=== PATIENT | female | born 1945 | race Asian ===

== ENCOUNTER 2020-09-29 19:50 | Emergency (ER) | payer MEDICARE, OTHER ==
--- NOTE | 2020-09-29 19:56 | ED Physician Documentation ---
PD HPI UPPER EXT INJURY - Stated complaint Stated Complaint: LT HAND FINGER CUT OFF - History obtained from History obtained from: Patient - History of Present Illness Location: Left Type of injury: Other (see narrative below) Where injury occurred: Home Timing - onset: Enter time (19:15) Timing - details: Abrupt onset Pain level now: 6 Associated symptoms: Weakness, Numbness Contributing factors: No: Anticoagulated Recently seen: Not recently seen - Additonal information Additional information: at approximately 7:15 PM tonight, patient was walking her dog when it suddenly tried to run away. The dog leash was coiled around patient's left third finger and the pull from the tightened leash resulted in a near-complete amputation of her left third finger. She is right hand dominant. 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 The entire articular surface of the distal aspect of left 3rd proximal phalanx is visible. The remainder of the digit distal to the PIP joint is only attached by a pedicle of skin and tissue at lateral aspect of the PIP joint area. ). No: Sensory intact (no LTS of distal left third finger. the distal aspect of left third finger is midly blanched but not pale nor cyanotic) Results - Vitals Vitals: Vital Signs - 24 hr 09/29/20 09/29/20 09/29/20 19:59 20:10 20:35 Temperature 36.2 C L Heart Rate 83 81 Respiratory 17 16 15 Rate Blood Pressure 148/92 H 141/81 H O2 Saturation 99 98 09/29/20 09/29/20 09/29/20 21:01 22:05 22:54 Temperature Heart Rate 86 77 90 Respiratory 16 16 16 Rate Blood Pressure 153/91 H 140/86 H 150/83 H O2 Saturation 100 98 98 Oxygen O2 Source Room air - Labs Labs: Laboratory Tests 09/29/20 09/29/20 09/29/20 20:00 20:00 22:51 WBC 6.8 RBC 4.69 Hgb 14.1 Hct 41.5 MCV 88.5 MCH 30.1 MCHC 34.0 RDW 12.3 Plt Count 217 MPV 10.6 Neut # (Auto) 3.8 Lymph # (Auto) 2.1 [place] # (Auto) 0.6 Eos # (Auto) 0.2 Baso # (Auto) 0.0 Absolute Nucleated RBC 0.00 Nucleated RBC % 0.0 Sodium 137 Potassium 3.9 Chloride 96 L Carbon Dioxide 30 Anion Gap 11.0 BUN 23 H Creatinine 0.8 Estimated GFR (MDRD) 70 L Glucose 107 H Calcium 9.4 Total Bilirubin 0.7 AST 31 ALT 24 Alkaline Phosphatase 47 Total Protein 7.2 Albumin 4.8 Globulin 2.4 Albumin/Globulin Ratio 2.0 Lipase 49 Nasal Adenovirus (PCR) NOT DETECTED Nasal B. parapertussis DNA (PCR) NOT DETECTED Nasal Coronavir 229E PCR NOT DETECTED Nasal Coronavir HKU1 PCR NOT DETECTED Nasal Coronavir NL63 PCR NOT DETECTED Nasal Coronavir OC43 PCR NOT DETECTED Nasal Enterovir/Rhinovir PCR NOT DETECTED Nasal Influenza B PCR NOT DETECTED Nasal Influenza A PCR NOT DETECTED Nasal Parainfluen 1 PCR NOT DETECTED Nasal Parainfluen 2 PCR NOT DETECTED Nasal Parainfluen 3 PCR NOT DETECTED Nasal Parainfluen 4 PCR NOT DETECTED Nasal RSV (PCR) NOT DETECTED Nasal B.pertussis DNA PCR NOT DETECTED Nasal C.pneumoniae (PCR) NOT DETECTED Amilcar Human Metapneumo PCR NOT DETECTED Nasal M.pneumoniae (PCR) NOT DETECTED Nasal SARS-CoV-2 (PCR) NOT DETECTED - Rads (name of study) left hand xray Radiology: Prelim report reviewed, See rad report PD MEDICAL DECISION MAKING - ED course Complexity details: reviewed results, re-evaluated patient, considered differential, d/w patient ED course: 20:00 D/W Dr. Daily (pianos and organs salesperson orthopedics), he recommends sending patient to facility with hand surgeon pianos and organs salesperson. 20:03 Page put out to [facility] 20:30 Received call from [facility] transfer center, discussed the case with transfer center coordinator. She will contact hand surgeon and call back. 21:46 Continuing to await call back from [facility] 22:[address] Mesa, plastic surgeon pianos and organs salesperson at [facility]. Based on my description, he opines that patient needs revision amputation, which can be performed in the ED by appropriate specialist such as orthopedic surgeon. Dr. Daily was repaged but no answer; message is left to call ED back. 22:15 Dr. Daily has not answered after [address] Mesa is repaged but he is busy with another case. While waiting to hear from Dr. Mesa, NATIONAL SALES DIRECTOR contacted [facility] and I was given the direct number for Dr. Quinones, pianos and organs salesperson ortho at [facility]. I contacted Dr. Quinones and he recommends patient receive evaluation in person by specialist that can perform reimplantation, as he is not certain revised amputation is necessary. I continue to await to hear from Dr. Mesa 22:[address] [place] [address] Mesa, accept transfer to [facility] ED Prior to transfer, I assisted ED RN and technical aid with placement of a dressing and I now note that there does not appear to be any skin bridges traversing any aspect of the wound, but there is resistance to straightening the finger, indicating some intact tendinous structures. The distal aspect of the finger continues to have only mild pale color; it is not cold nor cyanotic. Departure - Departure Disposition: 02 Transfer Acute Care Hosp Discharge Date/Time: 09/29/20 23:20
[2020-09-29] MEDS ORDERED: MORPHINE 2 MG/ML CARPUJECT IVP STA ×2 (20:17→23:07)
[2020-09-29] MEDS ORDERED: VANCOMYCIN INJ 1 GM in SODIUM CHLORIDE 0.9% 500 ML IV STA (20:20)
[2020-09-29 20:22] LABS: BASOPHILS % (AUTO) 0.6 %; EOSINOPHILS # (AUTO) 0.2 10^3/uL (0.0-0.7); EOSINOPHILS % (AUTO) 2.4 %; HCT - HEMATOCRIT 41.5 % (37.0-47.0); HGB - HEMOGLOBIN 14.1 g/dL (12.0-16.0); LYMPHOCYTES # (AUTO) 2.1 10^3/uL (1.5-3.5); LYMPHOCYTES % (AUTO) 31.3 %; MEAN CORPUSCULAR HEMOGLOBIN 30.1 pg (27.0-31.0); MEAN CORPUSCULAR VOLUME 88.5 fL (81.0-99.0); MEAN PLATELET VOLUME 10.6 fL (7.9-10.8); MONOCYTES # (AUTO) 0.6 10^3/uL (0.0-1.0); MONOCYTES % (AUTO) 8.8 %; NEUTROPHILS # (AUTO) 3.8 10^3/uL (1.5-6.6); NEUTROPHILS % (AUTO) 56.6 %; PLT - PLATELET COUNT 217 10^3/uL (130-450); RED BLOOD COUNT 4.69 10^6/uL (4.20-5.40); RED CELL DISTRIBUTION WIDTH 12.3 % (12.0-15.0); WHITE BLOOD COUNT 6.8 x10^3/uL (4.8-10.8)
[2020-09-29 20:31] LABS: ALBUMIN 4.8 g/dL (3.2-5.5); BILIRUBIN,TOTAL 0.7 mg/dL (0.2-1.0); CALCIUM 9.4 mg/dL (8.5-10.3); CREATININE 0.8 mg/dL (0.4-1.0); POTASSIUM 3.9 mmol/L (3.5-5.0); TOTAL PROTEIN 7.2 g/dL (6.7-8.2)
[2020-09-29] MEDS ORDERED: VANCOMYCIN 1 GM VIAL ONE (20:49)
--- NOTE | 2020-09-29 21:02 | XRAY Report ---
PROCEDURE: Hand 3 View LT INDICATIONS: near-amputation left third finger TECHNIQUE: 3 views of the hand(s) acquired. COMPARISON: None. FINDINGS: Bones: There is near amputation dislocation at the third proximal and interphalangeal joint. Arthrode sis of the first metatarsophalangeal joint. Prior surgical resection of the trapezium. No suspicious bony lesions. Soft tissues: Tissue amputation finger. IMPRESSION: 1. Near amputation of the third finger at the proximal interphalangeal joint. 2. There is a sliver of soft tissue connecting the finger between the proximal phalanx and the medial /distal phalanges. Reviewed by: Eileen Samuel MD on 09/29/2020 9:01 PM PDT Approved by: Eileen Samuel MD on 09/29/2020 9:01 PM PDT Station ID: [id number]
[2020-09-29 22:54] VITALS: BP 150/83
[2020-09-29 23:44] LABS: B. PARAPERTUSSIS- RESP PCR PAN NOT DETECTED; B. PERTUSSIS- RESP PCR PANEL NOT DETECTED; C. PNEUMONIAE- RESP PCR PANEL NOT DETECTED; CORONAVIRUS 229E-RESP PCR NOT DETECTED; CORONAVIRUS HKU1-RESP PCR NOT DETECTED; CORONAVIRUS NL63-RESP PCR NOT DETECTED; CORONAVIRUS OC43-RESP PCR NOT DETECTED; HUMAN METAPNEUMOVIRUS NOT DETECTED; INFLUENZA A- RESP PCR PANEL NOT DETECTED; INFLUENZA B - RESP PCR PANEL NOT DETECTED; M. PNEUMONIAE- RESP PCR PANEL NOT DETECTED; PARAINFLUENZA VIRUS 1 NOT DETECTED; PARAINFLUENZA VIRUS 2 NOT DETECTED; PARAINFLUENZA VIRUS 3 NOT DETECTED; PARAINFLUENZA VIRUS 4 NOT DETECTED; RHINOVIRUS/ENTEROVIRUS NOT DETECTED; RSV- RESP PCR PANEL NOT DETECTED; SARS-CoV-2 -RESP PCR PANEL NOT DETECTED
== END 2020-09-29 23:20 | disposition short-term general hospital (02) ==
LOC: ED 19:50
DX: S68.623A Partial traumatic transphalangeal amputation of left middle finger, initial encounter (principal); W49.09XA Other specified item causing external constriction, initial encounter; Y93.K1 Activity, walking an animal; Y92.009 Unspecified place in unspecified non-institutional (private) residence as the place of occurrence of the external cause; Z20.822 Contact with and (suspected) exposure to COVID-19
CPT/HCPCS: 36415; 73130; 80053; 83690; 85025; 87631; 96365; 96366; 96375; 96376; 99281; 99284; J3370; 0202U

== ENCOUNTER 2020-09-29 23:15 | Outpatient (CLI) | payer MEDICARE, OTHER | END 2020-09-29 23:16 | disposition short-term general hospital (02) | LOC: EMS 23:15 | PROVIDERS: ATTEND Emergency Medicine | DX: S68.123A Partial traumatic metacarpophalangeal amputation of left middle finger, initial encounter (principal); X50.1XXA Overexertion from prolonged static or awkward postures, initial encounter; Y93.K9 Activity, other involving animal care | CPT/HCPCS: A0425; A0426 ==

== ENCOUNTER 2022-04-02 11:02 | Emergency (ER) | payer MEDICARE, OTHER ==
[2022-04-02 12:05] LABS: BASOPHILS % (AUTO) 0.6 %; EOSINOPHILS # (AUTO) 0.1 10^3/uL (0.0-0.7); EOSINOPHILS % (AUTO) 1.4 %; HCT - HEMATOCRIT 41.4 % (37.0-47.0); HGB - HEMOGLOBIN 14.1 g/dL (12.0-16.0); LYMPHOCYTES # (AUTO) 1.8 10^3/uL (1.5-3.5); LYMPHOCYTES % (AUTO) 26.2 %; MEAN CORPUSCULAR HEMOGLOBIN 30.7 pg (27.0-31.0); MEAN CORPUSCULAR HGB CONC 34.1 g/dL (32.0-36.0); MEAN CORPUSCULAR VOLUME 90.2 fL (81.0-99.0); MEAN PLATELET VOLUME 10.2 fL (7.9-10.8); MONOCYTES # (AUTO) 0.6 10^3/uL (0.0-1.0); MONOCYTES % (AUTO) 8.2 %; NEUTROPHILS # (AUTO) 4.4 10^3/uL (1.5-6.6); NEUTROPHILS % (AUTO) 63.3 %; PLT - PLATELET COUNT 230 10^3/uL (130-450); RED BLOOD COUNT 4.59 10^6/uL (4.20-5.40); RED CELL DISTRIBUTION WIDTH 12.1 % (12.0-15.0)
[2022-04-02 12:14] LABS: CALCIUM 9.5 mg/dL (8.5-10.3); CREATININE 0.7 mg/dL (0.4-1.0); POTASSIUM 4.2 mmol/L (3.5-5.0)
[2022-04-02 12:18] LABS: BILIRUBIN,URINE NEGATIVE (NEGATIVE); CLARITY,URINE CLEAR (CLEAR); GLUCOSE, URINE (UA) NEGATIVE (NEGATIVE); KETONES,URINE (UA) NEGATIVE (NEGATIVE); LEUKOCYTE ESTERASE, URINE NEGATIVE (NEGATIVE); NITRITE,URINE NEGATIVE (NEGATIVE); OCCULT BLOOD,URINE NEGATIVE (NEGATIVE); PROTEIN,URINE NEGATIVE (NEGATIVE); UROBILINOGEN,URINE 0.2 (NORMAL) E.U./dL (NORMAL)
--- NOTE | 2022-04-02 13:54 | CT Report ---
PROCEDURE: CERVICAL SPINE WO INDICATIONS: fall, altered TECHNIQUE: Noncontrast 3 mm thick sections acquired from the skull base to the T4 level. Sagittal and coronal r eformats were then constructed. For radiation dose reduction, the following was used: automated exp osure control, adjustment of mA and/or kV according to patient size. COMPARISON: None. FINDINGS: Image quality: Excellent. Bones: No fractures or dislocations. Visualized superior ribs are intact. Cervical spondylitic fred nge is present. There is disc height loss and uncovertebral joint osteophytosis at C4-C5, C5-C6, and C6-C7. There is multilevel predominantly left-sided cervical facet arthropathy. Soft tissues: Prevertebral soft tissues are normal in thickness. No paravertebral hematomas. No ap ical pneumothoraces. IMPRESSION: 1. No evidence acute cervical fracture or dislocation. 2. Cervical spondylosis. Reviewed by: Gabriel Alex MD on 04/02/2022 1:52 PM PST Approved by: Gabriel Alex MD on 04/02/2022 1:52 PM PST Station ID: [id number]
--- NOTE | 2022-04-02 14:04 | CT Report ---
PROCEDURE: HEAD WO INDICATIONS: fall, head injury TECHNIQUE: Noncontrast 4.5 mm thick angled axial sections acquired from the foramen magnum to the vertex. For r adiation dose reduction, the following was used: automated exposure control, adjustment of mA and/or kV according to patient size. COMPARISON: None. FINDINGS: Image quality: Excellent. CSF spaces: Basal cisterns are patent. No extra-axial fluid collections. Ventricles are normal in size and shape. Brain: No midline shift. No intracranial masses or hemorrhage. Starr-white matter interface is norm al. Skull and face: Calvarium and visualized facial bones are intact, without suspicious lesions. Sinuses: Visualized sinuses and mastoids are clear. IMPRESSION: No evidence acute intracranial process. Reviewed by: Gabriel Alex MD on 04/02/2022 2:03 PM PST Approved by: Gabriel Alex MD on 04/02/2022 2:03 PM PST Station ID: [id number]
--- NOTE | 2022-04-02 14:05 | CT Report ---
PROCEDURE: MAXILLOFACIAL WO INDICATIONS: fall, facial pain TECHNIQUE: Noncontrast 1.5 mm thick axial images acquired from the mandible through the frontal sinuses, with co gilmar and sagittal reformatting. For radiation dose reduction, the following was used: automated ex posure control, adjustment of mA and/or kV according to patient size. COMPARISON: None. FINDINGS: Image quality: Excellent. Bones and teeth: Orbital davis are intact. Sinus davis show no fracture or deformity. Nasal bones and septum are intact. Visualized portions of the mandible demonstrate no fractures or subluxation. Zygomatic arches are intact. Pterygoid plates are intact. Visualized portions of the skull base an d auditory canals are intact. Sinuses: Paranasal sinuses are aerated, without fluid levels, mucosal thickening, or mucoceles. Mas toid air cells are aerated. Soft tissues: No edema, masses, or fluid collections. No enlarged lymph nodes. No soft tissue lace rations or debris. Vascular: Visualized vascular structures appear normal in the absence of contrast. Bony vascular fo ramina and canals are intact. IMPRESSION: No evidence of displaced facial bone fracture or mandibular fracture. Reviewed by: Gabriel Alex MD on 04/02/2022 2:04 PM PST Approved by: Gabriel Alex MD on 04/02/2022 2:04 PM PST Station ID: [id number]
--- NOTE | 2022-04-02 14:10 | ED Physician Documentation ---
PD HPI HEAD INJURY - Stated complaint Stated Complaint: FALL/HEAD INJ - Chief complaint Chief Complaint: Trauma Hd/Nk - History obtained from History obtained from: Patient, Family - History of Present Illness Pain level max: 6 Pain level now: 1 Location of injury: Left, Front Associated symptoms: AMS (Has had memory issues for the past several years, Does not seem to be worse). No: LOC, Paresthesias Contributing factors: No: Anticoagulated, Intoxicated - Additional information Additional information: 76-year-old female states that about 5 to 6 days ago she was walking on the sidewalk, slipped fell and struck the left side of her face/head. Has had cont inued bruising since that time. She has had memory issues for the past several years, no acute changes. She is not on blood thinners. Nothing makes it better or worse. No vision changes. Mild neck pain. She is not on blood thinners. Does not currently have a headache. No loss of consciousness. No vomiting. Patient and her are concerned about the continued bruising. 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: Ovarian cancer (remission), Breast cancer (remission) : None HEENT: None Psych: Depression Musculoskeletal: None Derm: None - Past Surgical History Past Surgical History: Yes General: Other /COMMUNITY HEALTH NAVIGATOR: Hysterectomy, Other HEENT: Tonsil/Adenoidectomy - Present Medications Home Medications: Ambulatory Orders Medication Instructions Recorded Confirmed Duloxetine HCl [Cymbalta] 60 mg PO DAILY 04/02/22 04/02/22 - Allergies Allergies/Adverse Reactions: Allergies Allergy/AdvReac Type Severity Reaction Status Date / Time Penicillins AdvReac Unknown Verified 04/02/22 11:23 shellfish derived AdvReac Unknown Verified 04/02/22 11:23 - Social History Does the pt smoke?: No Smoking Status: Never smoker Does the pt drink ETOH?: No Does the pt have substance abuse?: No - Immunizations Immunizations are current?: Yes - POLST Patient has POLST: No PD ED PE NORMAL - Vitals Vital signs reviewed: Yes - General General: No acute distress, Other (alert, oriented to person and place, not to time.) - HEENT HEENT: PERRL, EOMI, Moist mucous membranes, Pharynx benign, Other (L forehead bruising, L periorbital ecchymosis. mild periorbital tenderness L. no hyphema. otherwise normal facial exam.) - Neck Neck: Supple, no meningeal sign, Other (mild upper c-spine TTP, no stepoff or deformity. ) - Cardiac Cardiac: RRR, Strong equal pulses - Respiratory Respiratory: No respiratory distress, Clear bilaterally - Back Back: No CVA TTP, No spinal TTP - Derm Derm: Warm and dry - Extremities Extremities: No edema, No calf tenderness / cord - Neuro Neuro: Alert and oriented X 3 - Psych Psych: Normal mood, Normal affect Results - Vitals Vitals: Vital Signs - 24 hr 04/02/22 04/02/22 11:16 14:25 Temperature 36.1 C L Heart Rate 79 78 Respiratory 15 16 Rate Blood Pressure 109/69 121/74 O2 Saturation 100 99 Oxygen O2 Source Room air - Labs Labs: Laboratory Tests 04/02/22 04/02/22 04/02/22 12:00 12:00 12:10 WBC 7.0 RBC 4.59 Hgb 14.1 Hct 41.4 MCV 90.2 MCH 30.7 MCHC 34.1 RDW 12.1 Plt Count 230 MPV 10.2 Neut # (Auto) 4.4 Lymph # (Auto) 1.8 [place] # (Auto) 0.6 Eos # (Auto) 0.1 Baso # (Auto) 0.0 Absolute Nucleated RBC 0.00 Nucleated RBC % 0.0 Sodium 132 L Potassium 4.2 Chloride 96 L Carbon Dioxide 26 Anion Gap 10.0 BUN 20 Creatinine 0.7 Estimated GFR (MDRD) 82 L Glucose 93 Calcium 9.5 Urine Color YELLOW Urine Clarity CLEAR Urine pH 7.0 Ur Specific [place] 1.010 Urine Protein NEGATIVE Urine Glucose (UA) NEGATIVE Urine Ketones NEGATIVE Urine Occult Blood NEGATIVE Urine Nitrite NEGATIVE Urine Bilirubin NEGATIVE Urine Urobilinogen 0.2 (NORMAL) Ur Leukocyte Esterase NEGATIVE Ur Microscopic Review NOT INDICATED Urine Culture Comments NOT INDICATED - Rads (name of study) ct head Radiology: Final report received, See rad report ct maxillofacial Radiology: Final report received, See rad report ct cspine Radiology: Final report received, See rad report PD Medical Decision Making - ED course Complexity details: reviewed results, re-evaluated patient, considered differential, d/w patient, d/w family ED course: 76-year-old female status post ground-level fall 5 to 6 days ago. Bruising on the left side of the face. No hyphema. No facial fractures. No skull fractures. No cervical spine fracture. CT scans reviewed. CBC and BMP as well as urinalysis were ordered. These do not show any acute abnormalities. Patient currently asymptomatic. We will continue supportive care and have her follow- up with her doctor. Patient and family counseled regarding signs and symptoms for which I believe and urgent re-evaluation would be necessary. Patient with good understanding of and agreement to plan and is comfortable going home at this time This document was made in part using voice recognition software. While efforts are made to proofread this document, sound alike and grammatical errors may occur. Departure - Departure Disposition: 01 Home, Self Care Clinical Impression: Closed head injury Qualifiers: Encounter type: initial encounter Qualified Code(s): S09.90XA - Unspecified injury of head, initial encounter Facial contusion Qualifiers: Encounter type: initial encounter Qualified Code(s): S00.83XA - Contusion of other part of head, initial encounter Condition: Good Instructions: ED Contusion Face, ED Head Injury Closed Follow-Up: your,doctor in 1 week [Other] [facility] [Provider Group] [facility] [Provider Group] Comments: Please follow-up with your doctor for further care. There are no acute findings on your head CT, cervical spine CT or maxillofacial CT. There is no intracranial hemorrhage. There are no fractures. Discharge Date/Time: 04/02/22 14:24
[2022-04-02 14:26] VITALS: BP 121/74
== END 2022-04-02 14:24 | disposition home or self-care (01) ==
LOC: ED 11:02
DX: S00.83XA Contusion of other part of head, initial encounter (principal); W01.0XXA Fall on same level from slipping, tripping and stumbling without subsequent striking against object, initial encounter; Y93.01 Activity, walking, marching and hiking
CPT/HCPCS: 36415; 80048; 81001; 81003; 85025; 87086; 99283; 99284

== ENCOUNTER 2022-10-08 08:46 | Outpatient (CLI) | payer MEDICARE, OTHER ==
[2022-10-08 15:14] LABS: BASOPHILS % (AUTO) 0.4 %; EOSINOPHILS % (AUTO) 0.3 %; HCT - HEMATOCRIT 43.9 % (37.0-47.0); HGB - HEMOGLOBIN 15.1 g/dL (12.0-16.0); LYMPHOCYTES # (AUTO) 1.1 10^3/uL (1.5-3.5); LYMPHOCYTES % (AUTO) 13.3 %; MEAN CORPUSCULAR HEMOGLOBIN 31.1 pg (27.0-31.0); MEAN CORPUSCULAR HGB CONC 34.4 g/dL (32.0-36.0); MEAN CORPUSCULAR VOLUME 90.3 fL (81.0-99.0); MEAN PLATELET VOLUME 10.7 fL (7.9-10.8); MONOCYTES # (AUTO) 0.5 10^3/uL (0.0-1.0); MONOCYTES % (AUTO) 6.8 %; NEUTROPHILS # (AUTO) 6.2 10^3/uL (1.5-6.6); NEUTROPHILS % (AUTO) 78.9 %; PLT - PLATELET COUNT 277 10^3/uL (130-450); RED BLOOD COUNT 4.86 10^6/uL (4.20-5.40); RED CELL DISTRIBUTION WIDTH 12.3 % (12.0-15.0); WHITE BLOOD COUNT 7.9 x10^3/uL (4.8-10.8)
[2022-10-08 15:36] LABS: ALBUMIN 4.5 g/dL (3.2-5.5); ALKALINE PHOSPHATASE 47 IU/L (42-121); ALT ALANINE AMINOTRANSFERASE 10 IU/L (10-60); AST ASPARTATE AMINOTRANSFERASE 19 IU/L (10-42); BILIRUBIN,TOTAL 1.2 mg/dL (0.2-1.0); BUN - BLOOD UREA NITROGEN 10 mg/dL (6-20); CALCIUM 10.1 mg/dL (8.5-10.3); CARBON DIOXIDE - CO2 30 mmol/L (21-32); CHLORIDE 95 mmol/L (101-111); CHOL/HDL RATIO 2.7 (<4.4); CHOLESTEROL 218 mg/dL; CREATININE 0.8 mg/dL (0.6-1.3); GFR - MDRD 70 (>89); GLUCOSE 130 mg/dL (74-104); HDL CHOLESTEROL 82 mg/dL; LDL CHOLESTEROL,CALCULATED 117 mg/dL; LDL/HDL RATIO 1.4 (<4.4); POTASSIUM 4.2 mmol/L (3.5-4.5); SODIUM 130 mmol/L (135-145); TOTAL PROTEIN 6.7 g/dL (6.4-8.9); TRIGLYCERIDES 96 mg/dL (48-352); VLDL CHOLESTEROL 19 mg/dL
== END 2022-10-08 08:47 | disposition home or self-care (01) ==
LOC: LAB.S 08:46
PROVIDERS: ATTEND Nurse Practitioner Acute Care
DX: Z13.228 Encounter for screening for other metabolic disorders (principal); Z13.220 Encounter for screening for lipoid disorders; Z13.29 Encounter for screening for other suspected endocrine disorder; Z13.0 Encounter for screening for diseases of the blood and blood-forming organs and certain disorders involving the immune mechanism; R03.0 Elevated blood-pressure reading, without diagnosis of hypertension
CPT/HCPCS: 36415; 80053; 80061; 83721; 84443; 85025

== ENCOUNTER 2022-10-18 09:31 | Outpatient (CLI) | payer MEDICARE, OTHER ==
--- NOTE | 2022-10-18 20:33 | MRI Report ---
PROCEDURE: MRI brain without contrast INDICATIONS: COGNITIVE CHANGES TECHNIQUE: Noncontrast axial T1 spin echo, axial T2 fast spin echo, sagittal and axial FLAIR, coronal T2 fast sp in echo, axial gradient echo, axial diffusion and ADC through the brain. COMPARISON: CT brain 04/02/2022 FINDINGS: Image quality: Excellent. CSF Spaces: Basal cisterns are patent. No extra-axial fluid collections. Ventricles are normal in size and shape. Brain: No intracranial masses or hemorrhage. Starr/white matter interface is normal. Brainstem appe ars normal. Diffusion-weighted images demonstrate no acute infarct. Moderate atrophy and mild white matter chronic ischemic change present.. Normal intravascular flow voids are present. Skull and face: Calvarium has normal marrow signal. Orbits appear normal. Bilateral intraocular le ns replacements noted. Sinuses: Sinuses and mastoids are clear. IMPRESSION: Moderate generalized atrophy and mild chronic ischemic change without acute infarct, hemorrhage or ma ss lesion Reviewed by: Raj Frances MD on 10/18/2022 7:31 PM AKDT Approved by: Raj Frances MD on 10/18/2022 7:31 PM AKDT Station ID: [id number]
== END 2022-10-18 09:32 | disposition home or self-care (01) ==
LOC: DI 09:31
PROVIDERS: ATTEND Nurse Practitioner Acute Care
DX: G31.9 Degenerative disease of nervous system, unspecified (principal); I67.82 Cerebral ischemia; R41.89 Other symptoms and signs involving cognitive functions and awareness

== ENCOUNTER 2022-10-23 10:55 | Outpatient (CLI) | payer MEDICARE, OTHER ==
[2022-10-23 16:03] LABS: BILIRUBIN,DIRECT 0.18 mg/dL (0.03-0.18); BILIRUBIN,INDIRECT 0.7 mg/dL; BILIRUBIN,TOTAL 0.9 mg/dL (0.2-1.0)
[2022-10-23 20:25] LABS: ESTIMATED AVERAGE GLUCOSE 111 mg/dL (70-100); HEMOGLOBIN A1c% 5.5 % (4.27-6.07)
[2022-10-24 09:09] LABS: VITAMIN D 25-HYDROXY 91.6 ng/mL (30.0-100.0)
[2022-10-24 18:08] LABS: CALCIUM IONIZED SERUM 4.9 mg/dL (4.5-5.6)
== END 2022-10-23 10:56 | disposition home or self-care (01) ==
LOC: LAB.S 10:55
PROVIDERS: ATTEND Nurse Practitioner Acute Care
DX: E87.1 Hypo-osmolality and hyponatremia (principal); R35.89 Other polyuria; Z13.1 Encounter for screening for diabetes mellitus; R73.9 Hyperglycemia, unspecified; M81.0 Age-related osteoporosis without current pathological fracture; E80.6 Other disorders of bilirubin metabolism; R35.0 Frequency of micturition; R03.0 Elevated blood-pressure reading, without diagnosis of hypertension; R94.6 Abnormal results of thyroid function studies; R41.89 Other symptoms and signs involving cognitive functions and awareness
CPT/HCPCS: 36415; 81001; 82247; 82248; 82306; 82330; 83036; 83930; 83935; 84300; 84439; 87086

== ENCOUNTER 2022-10-29 08:00 | Outpatient (CLI) | payer MEDICARE, OTHER ==
[2022-10-29 14:41] LABS: BILIRUBIN,URINE NEGATIVE (NEGATIVE); GLUCOSE, URINE (UA) NEGATIVE (NEGATIVE); KETONES,URINE (UA) NEGATIVE (NEGATIVE); LEUKOCYTE ESTERASE, URINE MODERATE (NEGATIVE); NITRITE,URINE NEGATIVE (NEGATIVE); OCCULT BLOOD,URINE NEGATIVE (NEGATIVE); PROTEIN,URINE NEGATIVE (NEGATIVE); UROBILINOGEN,URINE 0.2 (NORMAL) E.U./dL (NORMAL)
[2022-10-29 14:42] LABS: CLARITY,URINE CLEAR (CLEAR)
[2022-10-29 14:58] LABS: BACTERIA,URINE Few /HPF (None Seen); RBC,URINE 0-5 /HPF (0-5); SQUAMOUS EPITHELIAL CELL,UR FEW Squamous (<= Few)
== END 2022-10-29 23:59 | disposition home or self-care (01) ==
LOC: LAB 08:00
PROVIDERS: ATTEND Nurse Practitioner Acute Care
DX: E87.1 Hypo-osmolality and hyponatremia (principal); R35.89 Other polyuria
CPT/HCPCS: 81001; 83935; 84300; 87086

== ENCOUNTER 2022-12-01 08:19 | Outpatient (CLI) | payer MEDICARE, OTHER ==
[2022-12-01 09:09] LABS: ALBUMIN 4.5 g/dL (3.2-5.5); ALBUMIN/GLOBULIN RATIO 2.1 (1.0-2.2); CALCIUM 9.7 mg/dL (8.5-10.3); CREATININE 0.7 mg/dL (0.4-1.0); TOTAL PROTEIN 6.6 g/dL (6.7-8.2)
[2022-12-01 09:28] LABS: THYROID STIMULATING HORMONE 7.67 uIU/mL (0.34-5.60)
[2022-12-01 12:36] LABS: ESTIMATED AVERAGE GLUCOSE 114 mg/dL (70-100); HEMOGLOBIN A1c% 5.6 % (4.27-6.07)
== END 2022-12-01 08:20 | disposition home or self-care (01) ==
LOC: LAB 08:19
PROVIDERS: ATTEND Nurse Practitioner Acute Care
DX: R73.9 Hyperglycemia, unspecified (principal); R94.6 Abnormal results of thyroid function studies; E87.1 Hypo-osmolality and hyponatremia
CPT/HCPCS: 36415; 80053; 83036; 84439; 84443

== ENCOUNTER 2022-12-30 09:00 | Outpatient (CLI) | payer MEDICARE, OTHER ==
--- NOTE | 2022-12-30 15:15 | Ultrasound Report ---
PROCEDURE: Retroperitoneal INDICATIONS: INCREASED URINATION TECHNIQUE: Real-time scanning was performed of the retroperitoneal organs, with image documentation. Imaging is limited secondary to shadowing artifact from the ribs. COMPARISON: None. FINDINGS: Kidneys: Kidneys are normal in size. Right kidney measures 8.7 cm long; left kidney measures 9 cm l caridad. Right renal cortical thickness is 1.1 cm; left renal cortical thickness is 1.3 cm. Cortical pa renchyma is mildly echogenic bilaterally. No definite solid masses, hydronephrosis, or nephrolithiasi s on the provided images. Bladder: Pre-void bladder volume is 87.03 mL. Post-void residual is 5.3 mL. Pre-void images demons trate no intraluminal masses or stones. On pre-void images, bilateral ureteral jets are noted with c olor Doppler interrogation. (Of note, ureteral jets may not be detectable in up to 25% of cases due to insufficient differences in specific gravity between ureteral and bladder urine). Miscellaneous: No free abdominal fluid. IMPRESSION: Imaging is limited secondary to shadowing from ribs. 1. Within these limitations, no hydronephrosis or nephrolithiasis bilaterally. 2. Bilateral renal cortical parenchyma is mildly echogenic which is nonspecific and may be seen in th e setting of medical renal disease versus imaging technique. 3. Normal sonographic appearance of the bladder with appropriate voiding and bilateral ureteral jets. Reviewed by: Asha Diez MD on 12/30/2022 3:14 PM PDT Approved by: Asha Diez MD on 12/30/2022 3:14 PM PDT Station ID: [id number]
== END 2022-12-30 09:01 | disposition home or self-care (01) ==
LOC: DI 09:00
PROVIDERS: ATTEND Nurse Practitioner Acute Care
DX: R35.0 Frequency of micturition (principal)

== ENCOUNTER 2023-01-18 07:53 | Outpatient (CLI) | payer MEDICARE, OTHER ==
[2023-01-18 15:19] LABS: CALCIUM 9.7 mg/dL (8.5-10.3); CREATININE 0.7 mg/dL (0.6-1.3); POTASSIUM 4.1 mmol/L (3.5-4.5)
[2023-01-18 15:40] LABS: THYROID STIMULATING HORMONE 6.49 uIU/mL (0.34-5.60)
== END 2023-01-18 07:54 | disposition home or self-care (01) ==
LOC: LAB.S 07:53
PROVIDERS: ATTEND Nurse Practitioner Acute Care
DX: E03.9 Hypothyroidism, unspecified (principal); R35.0 Frequency of micturition
CPT/HCPCS: 36415; 80048; 84439; 84443